=== PATIENT | male | born 1950 | race Caucasian/White ===

== ENCOUNTER 2020-10-09 19:05 | Emergency (ER) | payer MEDICARE ==
[~2020-10-09] VITALS: Ht 182.9 cm; Wt 134.1 kg
[2020-10-09 19:23] VITALS: Ht 182.9 cm; Wt 134.1 kg
[2020-10-09] MEDS ORDERED: UNSURE OF MEDS (19:25)
[2020-10-09 19:44] LABS: BASOPHILS 0.4 % (0-2); EOSINOPHILS 2.6 % (0-7); HEMATOCRIT 49.7 % (42.0-54.0); HEMOGLOBIN 16.5 g/dL (13.5-17.5); IMMATURE GRANULOCYTES 0.3 % (0-5); LYMPHOCYTE ABS# 1.44 10x3/uL (1.32-3.57); LYMPHOCYTES 18.8 % (15-50); MCH 30.6 pg (26.0-34.0); MCHC 33.2 g/dL (31.0-37.0); MEAN PLATELET VOLUME 12.7 fL (7.4-10.4); MONOCYTES 6.7 % (2-11); NEUTROPHIL ABS# 5.45 10x3/uL (1.78-5.38); NEUTROPHILS 71.2 % (40-80); PLATELET COUNT 147 10x3/uL (130-400); RDW 13.1 % (11.5-14.5); WBC 7.7 10x3/uL (4.8-10.8)
[2020-10-09 19:57] LABS: ANION GAP 13.2 mmol/L (8-16); CALCIUM 9.1 mg/dL (8.5-10.1); CARBON DIOXIDE 25.9 mmol/L (21.0-32.0); CREATININE - SERUM 1.3 mg/dL (0.6-1.3); POTASSIUM - SERUM 4.1 mmol/L (3.5-5.1)
[2020-10-09 20:02] LABS: ALBUMIN 3.6 g/dL (3.4-5.0); BILIRUBIN - TOTAL 0.77 mg/dL (0.2-1.3); PROTEIN - SERUM 6.6 g/dL (6.4-8.2)
[2020-10-09 21:41] LABS: BACTERIA MODERATE HPF (NONE SEEN); BILIRUBIN NEGATIVE (NEGATIVE); KETONE NEGATIVE (NEGATIVE); NITRITE NEGATIVE (NEGATIVE); SQUAMOUS EPITHELIAL 0-5 HPF (0-4); UROBILINOGEN NORMAL mg/dL (< 2); WHITE CELLS - URINE 0-5 HPF (0-1)
[2020-10-09] MEDS ORDERED: HYDROCODON-ACE1 EA10 PO (23:52)
[2020-10-09] MEDS ORDERED: FLOMAX0.4 MG PO (23:52)
[2020-10-10 00:15] VITALS: BP 146/86
== END 2020-10-10 00:16 | disposition home or self-care (01) ==
LOC: D.ER 19:05
PROVIDERS: Family Medicine
DX: N20.0 Calculus of kidney (principal); N13.30 Unspecified hydronephrosis; I10 Essential (primary) hypertension; I25.2 Old myocardial infarction